=== PATIENT | female | born 1980 | race Caucasian/White ===

== ENCOUNTER 2018-02-03 10:06 | Emergency (ER) | payer BC ==
--- NOTE | 2018-02-03 12:01 | CT ---
EXAMINATION TYPE: CT brain barby isaac DATE OF EXAM: 02/03/2018 COMPARISON: NONE HISTORY: Fell backwards down stairs CT DLP: 1078.1 mGycm. Automated Exposure Control for Dose Reduction was Utilized. TECHNIQUE: CT scan of the head and cervical spine are performed without contrast. FINDINGS: There is a left posterior parietal scalp laceration with overlying soft tissue swelling a nd a 4 mm scalp hematoma as well as subcutaneous emphysema. There is no acute intracranial hemorrhage , mass effect, or midline shift identified. Hypoattenuation within the right temporal lobe is linear on coronal and axial images related to spray artifact from the dense calvarium. The ventricles and s ulci are within normal limits in size. The globes are intact and the visualized sinuses are clear. Cervical spine is visualized in its entirety from C1 through upper thoracic levels and demonstrates s atisfactory alignment without evidence of acute fracture or dislocation. Prevertebral soft tissue ap pears within normal limits. The C1-C2 articulation is unremarkable. Biapical nodular pleural parenc hymal thickening and subsegmental atelectasis is seen. Straightening of the usual cervical lordosis l ikely relates to patient positioning. IMPRESSION: 1. There is no acute fracture or dislocation evident in the cervical spine. 2. No acute intracranial hemorrhage, mass effect, or midline shift is seen. 3. Left posterior parietal scalp contusion and 4 mm hematoma.
--- NOTE | 2018-02-03 12:07 | ED ---
Fall HPI - General Chief Complaint: Fall Stated Complaint: HEAD INJURY, FELL BACKWARDS DOWN STAIR Time Seen by Provider: 02/03/18 10:44 Source: patient Mode of arrival: wheelchair - History of Present Illness Initial Comments: This is a 37-year-old female to the ER for evaluation. This patient presents today for evaluation regards to fall. Patient fall from standing, lost her balance fell backwards landed on left hip hit her head does have small scalp laceration. No loss conscious no blood thinners. 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 ROS Other: All systems not noted in ROS Statement are negative. Past Medical History Past Medical History: No Reported History History of Any Multi-Drug Resistant Organisms: None Reported Past Surgical History: No Surgical Hx Reported Past Psychological History: No Psychological Hx Reported Smoking Status: Never smoker Past Alcohol Use History: Occasional Past Drug Use History: None Reported General Exam Limitations: no limitations General appearance: alert, in no apparent distress Head exam: Present: normocephalic, normal inspection. Absent: atraumatic (1 cm scalp laceration parietal) Eye exam: Present: normal appearance, PERRL, EOMI. Absent: scleral icterus, conjunctival injection, periorbital swelling ENT exam: Present: normal exam, mucous membranes moist Neck exam: Present: normal inspection. Absent: tenderness, meningismus, lymphadenopathy Respiratory exam: Present: normal lung sounds bilaterally. Absent: respiratory distress, wheezes, rales, rhonchi, stridor Cardiovascular Exam: Present: regular rate, normal rhythm, normal heart sounds. Absent: systolic murmur, diastolic murmur, rubs, gallop, clicks GI/Abdominal exam: Present: soft, normal bowel sounds. Absent: distended, tenderness, guarding, rebound, rigid Extremities exam: Present: normal inspection, full ROM, normal capillary refill. Absent: tenderness, pedal edema, joint swelling, calf tenderness Back exam: Present: normal inspection Neurological exam: Present: alert, oriented X3, CN II-XII intact Psychiatric exam: Present: normal affect, normal mood Skin exam: Present: warm, dry, intact, normal color. Absent: rash Course Vital Signs 02/03/18 10:10 Temperature 97.9 F Pulse Rate 91 Respiratory 16 Rate Blood Pressure 131/83 O2 Sat by Pulse 96 Oximetry - Reevaluation(s) Reevaluation #1: Medical records thoroughly reviewed Patient has resolution of headaches currently Patient is able to ambulate without significant difficulty or pain. Procedures - Laceration Laceration #1 Consent Obtained: verbal consent Time Out Performed: Yes Indication: laceration Site: scalp Size (cm): 1 Description: linear Pre-repair: wound explored Type of Sutures: other (staple) Technique: simple, interrupted Patient Tolerated Procedure: well Medical Decision Making - Medical Decision Making 37 female the ER status post trip and fall, mechanical fall with scalp laceration, laceration is repaired with staple, CT brain C-spine negative. Patient can be discharged home - Radiology Data Radiology results: report reviewed (CT brain C-spine negative for acute disease) , image reviewed Disposition Clinical Impression: Fall, Head injury, Scalp laceration Disposition: HOME SELF-CARE Condition: Good Instructions: Head Injury (ED), Contusion in Adults (ED) Is patient prescribed a controlled substance at d/c from ED?: No Referrals: None,Stated [Primary Care Provider] - 1-2 days
[2018-02-03 12:32] VITALS: BP 109/83; PULSE 67; RESP 18; TEMP 99.2
== END 2018-02-03 12:30 | disposition home or self-care (01) ==
LOC: EC 10:06
DX: S01.01XA Laceration without foreign body of scalp, initial encounter (principal); S70.02XA Contusion of left hip, initial encounter; W01.0XXA Fall on same level from slipping, tripping and stumbling without subsequent striking against object, initial encounter; Y93.01 Activity, walking, marching and hiking; Y92.008 Other place in unspecified non-institutional (private) residence as the place of occurrence of the external cause
CPT/HCPCS: 12001; 70450; 72125; 99283

== ENCOUNTER 2019-03-21 17:38 | Emergency (ER) | payer BC ==
[2019-03-21 18:51] VITALS: RESP 18
[2019-03-21] MEDS ORDERED: SODIUM CHLORIDE 0.9% 1,000 ML IV STA (19:09)
[2019-03-21] MEDS ORDERED: ONDANSETRON 4 MG/2 ML VIAL IVP STA (19:09)
[2019-03-21 19:29] LABS: Appearance,Urine Clear (Clear); Bilirubin,Urine Negative (Negative); Blood,Urine Negative (Negative); Color,Urine Light Yellow; Glucose,Urine (UA) Negative (Negative); HCT 39.6 % (34.0-46.0); HGB 13.5 gm/dL (11.4-16.0); Ketones,Urine Negative (Negative); Leukocyte Esterase,Urine Negative (Negative); MCH 30.5 pg (25.0-35.0); MCHC 34.2 g/dL (31.0-37.0); MCV 89.2 fL (80.0-100.0); Mean Platelet Volume 9.3; Nitrite,Urine Negative (Negative); Platelet Count 179 k/uL (150-450); Protein,Urine Negative (Negative); RBC 4.44 m/uL (3.80-5.40); Specific Gravity,Urine 1.017 (1.001-1.035); Urobilinogen,Urine <2.0 mg/dL (<2.0); WBC 10.5 k/uL (3.8-10.6)
[2019-03-21 19:33] LABS: ALT 23 U/L (9-52); AST 21 U/L (14-36); African American GFR (CKD) >90 (>60 ml/min/1.73 sqM); Albumin 4.8 g/dL (3.5-5.0); Alkaline Phosphatase 42 U/L (38-126); Anion Gap 12 mmol/L; Blood Urea Nitrogen 19 mg/dL (7-17); Calcium 9.6 mg/dL (8.4-10.2); Carbon Dioxide 24 mmol/L (22-30); Chloride 105 mmol/L (98-107); Glucose 89 mg/dL (74-99); Non-African American GFR(CKD) 89 (>60 ml/min/1.73 sqM); Potassium 3.8 mmol/L (3.5-5.1); Sodium 141 mmol/L (137-145); Total Bilirubin 0.4 mg/dL (0.2-1.3); Total Protein 7.9 g/dL (6.3-8.2)
--- NOTE | 2019-03-21 20:10 | XR ---
EXAMINATION TYPE: XR KUB DATE OF EXAM: 03/21/2019 7:44 PM CLINICAL HISTORY: Diarrhea today and blood in stool. TECHNIQUE: Two Upright KUB images of the abdomen are obtained. COMPARISON: None. FINDINGS: Scattered gas is seen in non-distended stomach and small bowel loops. Gas is seen in non-di stended colon. There are Essure radiodense devices in the pelvis presumed within fallopian tubes. Stephanie g bases are clear. No pneumoperitoneum. Osseous structures are intact. IMPRESSION: Overall nonobstructive bowel gas pattern.
[2019-03-21 20:47] LABS: Eosinophils # (M) 0.32 k/uL (0-0.7); Monocytes # (M) 0.42 k/uL (0-1.0); Neutrophils # (M) 7.67 k/uL (1.3-7.7); Neutrophils % (M) 73 %; Nucleated Red Blood Cells 0 /100 WBC (0-0); Total Cells Counted 100
--- NOTE | 2019-03-21 21:38 | ED ---
Nausea/Vomiting/Diarrhea HPI - General Chief complaint: Nausea/Vomiting/Diarrhea Stated complaint: Blood in stool Time Seen by Provider: 03/21/19 18:48 Source: patient Mode of arrival: ambulatory Limitations: no limitations - History of Present Illness Initial comments: 38-year-old female patient presents to the emergency department today for evaluation of diarrhea with rectal bleeding. Patient states she's had diarrhea for the last 4 days. She is reporting 3-4 episodes today of diarrhea contained bright red blood. She is also experiencing mild right upper quadrant abdominal discomfort. States it is a sharp stabbing pain. Denies any radiation of the pain through to her back. She denies any nausea or vomiting. Denies fever or chills. Denies any ingestion of questionable foods. Denies recent antibiotic use, recent travel, or sick contacts. She denies history of rectal bleeding. Denies ever having a colonoscopy. Patient denies any recent rash, shortness breath, chest pain, numbness, tingling, dizziness, weakness, hematuria, dysuria, urinary urgency, urinary frequency, headache, visual changes, or any other complaints. - Related Data Previous Rx's Medication Instructions Recorded Dicyclomine [Bentyl] 20 mg PO QID #12 tablet 03/21/19 Allergies Allergy/AdvReac Type Severity Reaction Status Date / Time No Known Allergies Allergy Verified 03/21/19 17:51 Review of Systems ROS Statement: Those systems with pertinent positive or pertinent negative responses have been documented in the HPI. ROS Other: All systems not noted in ROS Statement are negative. Past Medical History Past Medical History: No Reported History History of Any Multi-Drug Resistant Organisms: None Reported Past Surgical History: Tubal Ligation Past Psychological History: No Psychological Hx Reported Smoking Status: Never smoker Past Alcohol Use History: Occasional Past Drug Use History: None Reported General Exam Limitations: no limitations General appearance: alert, in no apparent distress, other (This is a well- developed, well-nourished adult female patient in no acute distress. Vital signs upon presentation are temperature 98.6F, pulse 60, respirations 20, blood pressure 149/89, pulse ox 97% on room air.) Eye exam: Present: normal appearance, PERRL, EOMI. Absent: scleral icterus, conjunctival injection, periorbital swelling ENT exam: Present: normal exam, normal oropharynx, mucous membranes moist Respiratory exam: Present: normal lung sounds bilaterally. Absent: respiratory distress, wheezes, rales, rhonchi, stridor Cardiovascular Exam: Present: regular rate, normal rhythm, normal heart sounds. Absent: systolic murmur, diastolic murmur, rubs, gallop, clicks GI/Abdominal exam: Present: soft, normal bowel sounds. Absent: distended, tenderness, guarding, rebound, rigid Neurological exam: Present: alert, oriented X3, CN II-XII intact Psychiatric exam: Present: normal affect, normal mood Skin exam: Present: warm, dry, intact, normal color. Absent: rash Course Vital Signs 03/21/19 03/21/19 03/21/19 17:48 18:51 22:04 Temperature 98.6 F 98.0 F Pulse Rate 60 75 68 Respiratory 20 18 18 Rate Blood Pressure 149/89 164/100 127/89 O2 Sat by Pulse 97 98 100 Oximetry Medical Decision Making - Medical Decision Making 38-year-old female patient presents to the emergency department today for evaluation of diarrhea with passage of bright red blood. Rectal exam was performed and showed no evidence for hemorrhoid or fissure. Occult blood was negative. The remainder of labs are unremarkable with normal white blood cell count, normal hemoglobin. KUB x-ray was obtained and showed no acute abnormalit ies. I did discuss findings and results with the patient. We did discuss colitis as a cause for her symptoms. She is instructed to increase fluids. She'll be given a prescription for Bentyl. She is instructed to follow-up with her primary care physician for recheck in 1-2 days. Return parameters were discussed in detail. She verbalizes understanding and agrees with this plan to - Lab Data Result diagrams: 03/21/19 18:42 03/21/19 18:42 Lab Results 03/21/19 03/21/19 03/21/19 Range/Units 18:42 18:42 18:42 WBC 10.5 (3.8-10.6) k/uL RBC 4.44 (3.80-5.40) m/uL Hgb 13.5 (11.4-16.0) gm/dL Hct 39.6 (34.0-46.0) % MCV 89.2 (80.0-100.0) fL MCH 30.5 (25.0-35.0) pg MCHC 34.2 (31.0-37.0) g/dL RDW 12.0 (11.5-15.5) % Plt Count 179 (150-450) k/uL Neutrophils % (Manual) 73 % Lymphocytes % (Manual) 20 % Monocytes % (Manual) 4 % Eosinophils % (Manual) 3 % Neutrophils # (Manual) 7.67 (1.3-7.7) k/uL Lymphocytes # (Manual) 2.10 (1.0-4.8) k/uL Monocytes # (Manual) 0.42 (0-1.0) k/uL Eosinophils # (Manual) 0.32 (0-0.7) k/uL Nucleated RBCs 0 (0-0) /100 WBC Manual Slide Review Performed RBC Morphology Normal Sodium 141 (137-145) mmol/L Potassium 3.8 (3.5-5.1) mmol/L Chloride 105 (98-107) mmol/L Carbon Dioxide 24 (22-30) mmol/L Anion Gap 12 mmol/L BUN 19 H (7-17) mg/dL Creatinine 0.84 (0.52-1.04) mg/dL Est GFR (CKD-EPI)AfAm >90 (>60 ml/min/1.73 sqM) Est GFR (CKD-EPI)NonAf 89 (>60 ml/min/1.73 sqM) Glucose 89 (74-99) mg/dL Calcium 9.6 (8.4-10.2) mg/dL Total Bilirubin 0.4 (0.2-1.3) mg/dL AST 21 (14-36) U/L ALT 23 (9-52) U/L Alkaline Phosphatase 42 (38-126) U/L Total Protein 7.9 (6.3-8.2) g/dL Albumin 4.8 (3.5-5.0) g/dL Lipase 253 (23-300) U/L Urine Color Light Yellow Urine Appearance Clear (Clear) Urine pH 6.0 (5.0-8.0) Ur Specific [place] 1.017 (1.001-1.035) Urine Protein Negative (Negative) Urine Glucose (UA) Negative (Negative) Urine Ketones Negative (Negative) Urine Blood Negative (Negative) Urine Nitrite Negative (Negative) Urine Bilirubin Negative (Negative) Urine Urobilinogen <2.0 (<2.0) mg/dL Ur Leukocyte Esterase Negative (Negative) Urine HCG, Qual (Not Detectd) Stool Occult Blood (Negative) 03/21/19 03/21/19 Range/Units 18:42 19:20 WBC (3.8-10.6) k/uL RBC (3.80-5.40) m/uL Hgb (11.4-16.0) gm/dL Hct (34.0-46.0) % MCV (80.0-100.0) fL MCH (25.0-35.0) pg MCHC (31.0-37.0) g/dL RDW (11.5-15.5) % Plt Count (150-450) k/uL Neutrophils % (Manual) % Lymphocytes % (Manual) % Monocytes % (Manual) % Eosinophils % (Manual) % Neutrophils # (Manual) (1.3-7.7) k/uL Lymphocytes # (Manual) (1.0-4.8) k/uL Monocytes # (Manual) (0-1.0) k/uL Eosinophils # (Manual) (0-0.7) k/uL Nucleated RBCs (0-0) /100 WBC Manual Slide Review RBC Morphology Sodium (137-145) mmol/L Potassium (3.5-5.1) mmol/L Chloride (98-107) mmol/L Carbon Dioxide (22-30) mmol/L Anion Gap mmol/L BUN (7-17) mg/dL Creatinine (0.52-1.04) mg/dL Est GFR (CKD-EPI)AfAm (>60 ml/min/1.73 sqM) Est GFR (CKD-EPI)NonAf (>60 ml/min/1.73 sqM) Glucose (74-99) mg/dL Calcium (8.4-10.2) mg/dL Total Bilirubin (0.2-1.3) mg/dL AST (14-36) U/L ALT (9-52) U/L Alkaline Phosphatase (38-126) U/L Total Protein (6.3-8.2) g/dL Albumin (3.5-5.0) g/dL Lipase (23-300) U/L Urine Color Urine Appearance (Clear) Urine pH (5.0-8.0) Ur Specific [place] (1.001-1.035) Urine Protein (Negative) Urine Glucose (UA) (Negative) Urine Ketones (Negative) Urine Blood (Negative) Urine Nitrite (Negative) Urine Bilirubin (Negative) Urine Urobilinogen (<2.0) mg/dL Ur Leukocyte Esterase (Negative) Urine HCG, Qual Not Detected (Not Detectd) Stool Occult Blood Negative (Negative) - Radiology Data Radiology results: report reviewed, image reviewed KUB x-ray was obtained. Report was reviewed in its entirety. Impression by Dr. Flores shows overall nonobstructive bowel gas pattern. Disposition Clinical Impression: Diarrhea, Rectal bleeding, Colitis Disposition: HOME SELF-CARE Condition: Good Instructions (If sedation given, give patient instructions): Acute Diarrhea (ED), Colitis (ED) Additional Instructions: Take medications as directed. Increase fluids. Follow-up through primary care physician for recheck in 1-2 days. Return to the emergency department immediately for any new, worsening, or concerning symptoms. Prescriptions: Dicyclomine [Bentyl] 20 mg PO QID #12 tablet Is patient prescribed a controlled substance at d/c from ED?: No Referrals: Gage Grace DO [Primary Care Provider] - 1-2 days Time of Disposition: 21:37
[2019-03-21 22:05] VITALS: BP 127/89; PULSE 68; TEMP 98
== END 2019-03-21 22:05 | disposition home or self-care (01) ==
LOC: EC 17:38
DX: K52.9 Noninfective gastroenteritis and colitis, unspecified (principal)
CPT/HCPCS: 36415; 80053; 83690; 85025; 82272; 81003; 81025; 74018; 99284; 96374; 96361; J2405

== ENCOUNTER 2019-03-26 22:37 | Emergency (ER) | payer BC ==
[2019-03-26 22:45] VITALS: TEMP 97.9
--- NOTE | 2019-03-26 22:53 | ED ---
Abdominal Pain HPI - General Chief Complaint: Abdominal Pain Stated Complaint: Abd Pain/Swelling Time Seen by Provider: 03/26/19 22:52 Source: patient, RN notes reviewed, old records reviewed Mode of arrival: ambulatory Limitations: no limitations - History of Present Illness Initial Comments: This is a 38-year-old female here. She presents to the ER today for evaluation regards right lower quadrant abdominal pain as normal bowel movements. History of recent GI illness with diarrheal illness. Nausea no vomiting no fevers. Patient's abdominal pain is just right lower quadrant no family member for similar complaint and herself no significant surgery history MD Complaint: abdominal pain (Right lower quadrant) -: week(s) Location: RLQ Radiation: RLQ, suprapubic Migration to: suprapubic Severity: moderate Severity scale (1-10): 4 Quality: aching Consistency: constant, intermittent Improves With: nothing Worsens With: nothing Associated Symptoms: nausea - Related Data Previous Rx's Medication Instructions Recorded Dicyclomine [Bentyl] 20 mg PO QID #12 tablet 03/21/19 Allergies Allergy/AdvReac Type Severity Reaction Status Date / Time No Known Allergies Allergy Verified 03/26/19 22:45 Review of Systems ROS Statement: Those systems with pertinent positive or pertinent negative responses have been documented in the HPI. ROS Other: All systems not noted in ROS Statement are negative. Past Medical History Past Medical History: No Reported History History of Any Multi-Drug Resistant Organisms: None Reported Past Surgical History: Tubal Ligation Past Psychological History: No Psychological Hx Reported Smoking Status: Never smoker Past Alcohol Use History: Occasional Past Drug Use History: None Reported General Exam Limitations: no limitations General appearance: alert, in no apparent distress Head exam: Present: atraumatic, normocephalic, normal inspection Eye exam: Present: normal appearance, PERRL, EOMI. Absent: scleral icterus, conjunctival injection, periorbital swelling ENT exam: Present: normal exam, mucous membranes moist Neck exam: Present: normal inspection. Absent: tenderness, meningismus, lymphadenopathy Respiratory exam: Present: normal lung sounds bilaterally. Absent: respiratory distress, wheezes, rales, rhonchi, stridor Cardiovascular Exam: Present: regular rate, normal rhythm, normal heart sounds. Absent: systolic murmur, diastolic murmur, rubs, gallop, clicks GI/Abdominal exam: Present: soft, normal bowel sounds. Absent: distended, tenderness, guarding, rebound, rigid Extremities exam: Present: normal inspection, full ROM, normal capillary refill. Absent: tenderness, pedal edema, joint swelling, calf tenderness Back exam: Present: normal inspection Neurological exam: Present: alert, oriented X3, CN II-XII intact Psychiatric exam: Present: normal affect, normal mood Skin exam: Present: warm, dry, intact, normal color. Absent: rash Course Vital Signs 03/26/19 22:42 Temperature 97.9 F Pulse Rate 66 Respiratory 16 Rate Blood Pressure 125/82 O2 Sat by Pulse 96 Oximetry - Reevaluation(s) Reevaluation #1: 03/27/19 00:31 Medical records reviewed Reevaluation #2: 03/27/19 01:08 Patient's symptoms are moderately improved. Medical Decision Making - Medical Decision Making 38 is a female with nonspecific abdominal pain and gastritis-type illness. Patient has normal CT and lab work here in the urine can be discharged home - Lab Data Result diagrams: 03/26/19 23:20 03/26/19 23:20 Lab Results 03/26/19 03/26/19 03/26/19 Range/Units 23:20 23:20 23:20 WBC 8.9 (3.8-10.6) k/uL RBC 4.18 (3.80-5.40) m/uL Hgb 12.9 (11.4-16.0) gm/dL Hct 36.6 (34.0-46.0) % MCV 87.6 (80.0-100.0) fL MCH 30.9 (25.0-35.0) pg MCHC 35.2 (31.0-37.0) g/dL RDW 12.0 (11.5-15.5) % Plt Count 147 L (150-450) k/uL Neutrophils % 67 % Lymphocytes % 23 % Monocytes % 7 % Eosinophils % 2 % Basophils % 0 % Neutrophils # 5.9 (1.3-7.7) k/uL Lymphocytes # 2.1 (1.0-4.8) k/uL Monocytes # 0.6 (0-1.0) k/uL Eosinophils # 0.1 (0-0.7) k/uL Basophils # 0.0 (0-0.2) k/uL Sodium 137 (137-145) mmol/L Potassium 3.8 (3.5-5.1) mmol/L Chloride 104 (98-107) mmol/L Carbon Dioxide 26 (22-30) mmol/L Anion Gap 7 mmol/L BUN 17 (7-17) mg/dL Creatinine 0.79 (0.52-1.04) mg/dL Est GFR (CKD-EPI)AfAm >90 (>60 ml/min/1.73 sqM) Est GFR (CKD-EPI)NonAf >90 (>60 ml/min/1.73 sqM) Glucose 93 (74-99) mg/dL Plasma Lactic Acid [place] (0.7-2.0) mmol/L Calcium 9.2 (8.4-10.2) mg/dL Total Bilirubin 0.5 (0.2-1.3) mg/dL AST 17 (14-36) U/L ALT 19 (9-52) U/L Alkaline Phosphatase 36 L (38-126) U/L Total Protein 7.1 (6.3-8.2) g/dL Albumin 4.3 (3.5-5.0) g/dL Amylase 38 (30-110) U/L Lipase 217 (23-300) U/L Urine Color Urine Appearance (Clear) Urine pH (5.0-8.0) Ur Specific [place] (1.001-1.035) Urine Protein (Negative) Urine Glucose (UA) (Negative) Urine Ketones (Negative) Urine Blood (Negative) Urine Nitrite (Negative) Urine Bilirubin (Negative) Urine Urobilinogen (<2.0) mg/dL Ur Leukocyte Esterase (Negative) Urine RBC (0-5) /hpf Urine WBC (0-5) /hpf Ur Squamous Epith Cells (0-4) /hpf Urine Mucus (None) /hpf Urine HCG, Qual Not Detected (Not Detectd) 03/26/19 03/26/19 Range/Units 23:20 23:20 WBC (3.8-10.6) k/uL RBC (3.80-5.40) m/uL Hgb (11.4-16.0) gm/dL Hct (34.0-46.0) % MCV (80.0-100.0) fL MCH (25.0-35.0) pg MCHC (31.0-37.0) g/dL RDW (11.5-15.5) % Plt Count (150-450) k/uL Neutrophils % % Lymphocytes % % Monocytes % % Eosinophils % % Basophils % % Neutrophils # (1.3-7.7) k/uL Lymphocytes # (1.0-4.8) k/uL Monocytes # (0-1.0) k/uL Eosinophils # (0-0.7) k/uL Basophils # (0-0.2) k/uL Sodium (137-145) mmol/L Potassium (3.5-5.1) mmol/L Chloride (98-107) mmol/L Carbon Dioxide (22-30) mmol/L Anion Gap mmol/L BUN (7-17) mg/dL Creatinine (0.52-1.04) mg/dL Est GFR (CKD-EPI)AfAm (>60 ml/min/1.73 sqM) Est GFR (CKD-EPI)NonAf (>60 ml/min/1.73 sqM) Glucose (74-99) mg/dL Plasma Lactic Acid [place] 0.6 L (0.7-2.0) mmol/L Calcium (8.4-10.2) mg/dL Total Bilirubin (0.2-1.3) mg/dL AST (14-36) U/L ALT (9-52) U/L Alkaline Phosphatase (38-126) U/L Total Protein (6.3-8.2) g/dL Albumin (3.5-5.0) g/dL Amylase (30-110) U/L Lipase (23-300) U/L Urine Color Light Yellow Urine Appearance Cloudy H (Clear) Urine pH 6.0 (5.0-8.0) Ur Specific [place] 1.015 (1.001-1.035) Urine Protein Negative (Negative) Urine Glucose (UA) Negative (Negative) Urine Ketones Negative (Negative) Urine Blood Negative (Negative) Urine Nitrite Negative (Negative) Urine Bilirubin Negative (Negative) Urine Urobilinogen <2.0 (<2.0) mg/dL Ur Leukocyte Esterase Negative (Negative) Urine RBC 1 (0-5) /hpf Urine WBC 1 (0-5) /hpf Ur Squamous Epith Cells 4 (0-4) /hpf Urine Mucus Rare H (None) /hpf Urine HCG, Qual (Not Detectd) - Radiology Data Radiology results: report reviewed (CT of the abdomen pelvis is negative for acute disease), image reviewed Disposition Clinical Impression: Diarrhea, Colitis, Abdominal pain Disposition: HOME SELF-CARE Condition: Good Instructions (If sedation given, give patient instructions): Abdominal Pain (ED) Is patient prescribed a controlled substance at d/c from ED?: No Referrals: Gage Grace DO [Primary Care Provider] - 1-2 days
[2019-03-26] MEDS ORDERED: ONDANSETRON 4 MG/2 ML VIAL IVP STA (23:41)
[2019-03-26] MEDS ORDERED: SODIUM CHLORIDE 0.9% 1,000 ML IV STA (23:41)
[2019-03-26] MEDS ORDERED: KETOROLAC 30 MG/ML 1 ML VIAL IVP STA (23:41)
[2019-03-26] MEDS ORDERED: MORPHINE SULFATE 4 MG/ML SYRINGE IV STA (23:41)
[2019-03-27 00:03] LABS: Appearance,Urine Cloudy (Clear); Bilirubin,Urine Negative (Negative); Blood,Urine Negative (Negative); Color,Urine Light Yellow; Glucose,Urine (UA) Negative (Negative); Ketones,Urine Negative (Negative); Leukocyte Esterase,Urine Negative (Negative); Mucus,Urine Rare /hpf; Nitrite,Urine Negative (Negative); Protein,Urine Negative (Negative); RBC,Urine 1 /hpf (0-5); Specific Gravity,Urine 1.015 (1.001-1.035); Squamous Epithelial Cell,Urine 4 /hpf (0-4); Urobilinogen,Urine <2.0 mg/dL (<2.0)
[2019-03-27 00:10] LABS: ALT 19 U/L (9-52); AST 17 U/L (14-36); African American GFR (CKD) >90 (>60 ml/min/1.73 sqM); Albumin 4.3 g/dL (3.5-5.0); Alkaline Phosphatase 36 U/L (38-126); Amylase 38 U/L (30-110); Anion Gap 7 mmol/L; Blood Urea Nitrogen 17 mg/dL (7-17); Calcium 9.2 mg/dL (8.4-10.2); Carbon Dioxide 26 mmol/L (22-30); Chloride 104 mmol/L (98-107); Glucose 93 mg/dL (74-99); Non-African American GFR(CKD) >90 (>60 ml/min/1.73 sqM); Potassium 3.8 mmol/L (3.5-5.1); Sodium 137 mmol/L (137-145); Total Bilirubin 0.5 mg/dL (0.2-1.3); Total Protein 7.1 g/dL (6.3-8.2)
[2019-03-27 00:13] LABS: Basophils % (A) 0 %; Eosinophils # (A) 0.1 k/uL (0-0.7); Eosinophils % (A) 2 %; HCT 36.6 % (34.0-46.0); HGB 12.9 gm/dL (11.4-16.0); Lymphocytes # (A) 2.1 k/uL (1.0-4.8); Lymphocytes % (A) 23 %; MCH 30.9 pg (25.0-35.0); MCHC 35.2 g/dL (31.0-37.0); MCV 87.6 fL (80.0-100.0); Mean Platelet Volume 9.8; Monocytes # (A) 0.6 k/uL (0-1.0); Monocytes % (A) 7 %; Neutrophils # (A) 5.9 k/uL (1.3-7.7); Neutrophils % (A) 67 %; Platelet Count 147 k/uL (150-450); RBC 4.18 m/uL (3.80-5.40); WBC 8.9 k/uL (3.8-10.6)
--- NOTE | 2019-03-27 00:40 | CT ---
EXAMINATION TYPE: CT abdomen pelvis w con DATE OF EXAM: 03/27/2019 COMPARISON: None HISTORY: Patient presents with right sided abdominal pain. CT DLP: 749 mGycm Automated exposure control for dose reduction was used. CONTRAST: Performed with IV Contrast, patient injected with 100mL mL of Isovue 300. Lung bases are clear. There is no pleural effusion. Heart size is normal. Stomach is intact. Liver spleen pancreas gallbladder appear normal. Bile ducts are not dilated. There is no adrenal mass. Kidneys show satisfactory contrast opacification. There is no hydronephrosi s. There is no retroperitoneal adenopathy. Bladder distends smoothly. There is no inguinal hernia. Th ere are clips from tubal ablation. There is no free fluid in the pelvis. Uterus is anteverted. There is no mesenteric edema. There is no ascites or free air. There is 5 mm cyst in the lateral left kidney. There is no sign of a bowel obstruction. The bony pelvis is intact. Lumbar spine is intact. There is no compression fracture. There is no evidence of thickened appendix. Appendix is not definitely seen. IMPRESSION: Negative CT scan abdomen and pelvis. I do not see a cause for right-sided pain.
[2019-03-27 01:39] VITALS: BP 116/82; PULSE 57; RESP 18
== END 2019-03-27 01:38 | disposition home or self-care (01) ==
LOC: EC 22:37
DX: K52.9 Noninfective gastroenteritis and colitis, unspecified (principal)
CPT/HCPCS: 36415; 80053; 82150; 83605; 83690; 85025; 81001; 81025; 74177; 96374; 96375 ×2; 96361; 99285; J2270; J2405; J1885; Q9967

== ENCOUNTER 2019-09-09 17:18 | Emergency (ER) | payer BC ==
[2019-09-09 17:29] VITALS: BP 147/87; PULSE 77; RESP 18; TEMP 98.6
--- NOTE | 2019-09-09 18:36 | XR ---
Right ankle and right foot HISTORY: Trauma and pain 3 views of the right ankle and 3 views of the right foot Bone mineralization, joint spaces and alignment are maintained IMPRESSION: No acute fracture or dislocation of the right foot or ankle.
--- NOTE | 2019-09-09 18:41 | ED ---
Lower Extremity Injury HPI - General Chief Complaint: Extremity Injury, Lower Stated Complaint: Ankle injury Time Seen by Provider: 09/09/19 17:30 Source: patient Mode of arrival: ambulatory Limitations: no limitations - History of Present Illness Initial Comments: 39-year-old female presenting today for chief complaint of right ankle pain patient states this morning she was hiking when she slipped of a log rolling her right ankle inward. Patient she has been able to weight-bear however is painful she is no swelling over the lateral aspect of the ankle. Patient states she had no pain prior to this injury. Patient denies any pain at the knee she denies falling hitting her head or any other injury. Patient denies any numbness tingling loss of sensation coolness or pallor of the extremity. She has no additional clinical signs upon arrival she appears well-nourished signs of acute distress. Patient using crutches on arrival - Related Data Previous Rx's Medication Instructions Recorded Dicyclomine [Bentyl] 20 mg PO QID #12 tablet 03/21/19 Allergies Allergy/AdvReac Type Severity Reaction Status Date / Time No Known Allergies Allergy Verified 09/09/19 17:29 Review of Systems ROS Statement: Those systems with pertinent positive or pertinent negative responses have been documented in the HPI. ROS Other: All systems not noted in ROS Statement are negative. Past Medical History Past Medical History: No Reported History History of Any Multi-Drug Resistant Organisms: None Reported Past Surgical History: Tubal Ligation Past Psychological History: No Psychological Hx Reported Smoking Status: Never smoker Past Alcohol Use History: Occasional Past Drug Use History: None Reported General Exam - General Exam Comments Initial Comments: General: The patient is awake and alert, in no distress, and does not appear acutely ill. Eye: Pupils are equal, round and reactive to light, extra-ocular movements are intact. No nystagmus. There is normal conjunctiva bilaterally. No signs of icterus. Musculoskeletal: Upon inspection of the right foot and ankle there is soft tissue swelling over the lateral malleolus as well as the proximal aspect of the foot. Patient is point localized tenderness over these areas she is no tenderness over the forefoot there is no bruising on the plantar aspect. Normal ROM at ankles/feet but with tenderness of the right ankle. Strength preserved, Sensation intact proximal little distal to injury site. DP pulses equal bilaterally 2+. Neurological: A&O x 3. CN II-XII intact grossly, There are no obvious motor or sensory deficits. Coordination appears grossly intact. Speech is normal. Skin: Skin is warm and dry and no rashes or lesions are noted. Psychiatric: Cooperative, appropriate mood & affect, normal judgment. Limitations: no limitations Course Vital Signs 09/09/19 17:27 Temperature 98.6 F Pulse Rate 77 Respiratory 18 Rate Blood Pressure 147/87 O2 Sat by Pulse 99 Oximetry Medical Decision Making - Medical Decision Making 39-year-old feel presented for right ankle pain swelling on examination for an ankle x-ray revealed no fracture I did personally review the studies. Patient is able to weight-bear I suspect that this is a sprain however I recommended symptoms are persistent for greater than 1 week to follow-up with orthopedic surgery however at this time patient can follow-up with primary care provider Rice instructions and use crutches for comfort. Patient is agreeable to this Plan and discharge at this time. Disposition Clinical Impression: Ankle sprain Disposition: HOME SELF-CARE Condition: Good Instructions (If sedation given, give patient instructions): Ankle Sprain (ED) Additional Instructions: Please use medication as discussed. Please follow-up with family doctor in the next 2 days. If symptoms persist follow-up with orthopedics otherwise follow-up with primary is indicated. Please return to emergency room if the symptoms increase or worsen or for any other concerns. Is patient prescribed a controlled substance at d/c from ED?: No Referrals: Gage Grace DO [Primary Care Provider] - 1-2 days Time of Disposition: 18:40
== END 2019-09-09 19:17 | disposition home or self-care (01) ==
LOC: EC 17:18
DX: S93.401A Sprain of unspecified ligament of right ankle, initial encounter (principal); X50.1XXA Overexertion from prolonged static or awkward postures, initial encounter; Y93.01 Activity, walking, marching and hiking
CPT/HCPCS: 99283